=== PATIENT | female | born 2000 | race African-American/Black ===

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

== ENCOUNTER 2020-07-20 08:02 | Emergency (ER) | payer MEDICAID, OTHER ==
[~2020-07-20] VITALS: Ht 160 cm; Wt 52.0 kg
[2020-07-20 08:06] VITALS: BP 130/91
== END 2020-07-20 09:16 | disposition home or self-care (01) ==
LOC: ER 08:02
DX: L03.115 Cellulitis of right lower limb (principal)
CPT/HCPCS: 99283

== ENCOUNTER 2022-04-03 12:19 | Emergency (ER) | payer OTHER ==
[~2022-04-03] VITALS: Ht 167.6 cm; Wt 57.0 kg
[2022-04-03] MEDS ORDERED: CYCL10TA21 MT (16:56)
[2022-04-03] MEDS ORDERED: ACET-2708 MT (16:56)
[2022-04-03] MEDS ORDERED: LIDO700A30 TP (16:56)
[2022-04-03] MEDS: LIDOCAINE 5% PATCH TOP SCH ×3 (17:00→17:45)
[2022-04-03] MEDS ORDERED: CYCLOBENZAPRINE 10MG TABLET PO ONE (17:00)
[2022-04-03] MEDS ORDERED: ACETAMINOPHEN 325MG TABLET PO ONE (17:00)
[2022-04-03 17:45] VITALS: BP 123/80
== END 2022-04-03 17:19 | disposition home or self-care (01) ==
LOC: ER 12:59
DX: S29.012A Strain of muscle and tendon of back wall of thorax, initial encounter (principal); V49.9XXA Car occupant (driver) (passenger) injured in unspecified traffic accident, initial encounter; Y93.89 Activity, other specified; Y92.89 Other specified places as the place of occurrence of the external cause; Y99.8 Other external cause status
CPT/HCPCS: 99283

== ENCOUNTER 2023-07-06 00:03 | Emergency (ER) | payer OTHER ==
[~2023-07-06] VITALS: Ht 160 cm; Wt 64.6 kg
[~2023-07-06 00:03] MED LIST changes: +ACET-2708 MT; +CYCL10TA21 MT; +LIDO700A30 TP
[2023-07-06 00:09] VITALS: BP 102/70; PULSE 83; RESP 16; TEMP 98.4; O2SAT 100
[2023-07-06] MEDS ORDERED: CEPH500T MT (00:37)
[2023-07-06] MEDS ORDERED: CEPHALEXIN 250MG CAPSULE PO ONE (00:45)
== END 2023-07-06 01:00 | disposition home or self-care (01) ==
LOC: ER 00:03
DX: L03.116 Cellulitis of left lower limb (principal)
CPT/HCPCS: 99283